=== PATIENT | female | born 1995 | race Two or more races ===

== ENCOUNTER 2017-07-29 21:31 | Emergency (ER) | payer MEDICAID, OTHER ==
[~2017-07-29] VITALS: Ht 157.5 cm; Wt 79.7 kg
[2017-07-29] MEDS ORDERED: LEVETIRACETAM 500 MG TABLET PO ONE (23:00)
[2017-07-29 23:24] VITALS: BP 144/89
== END 2017-07-29 23:27 | disposition home or self-care (01) ==
LOC: ED 23:14
DX: R56.9 Unspecified convulsions (principal)
CPT/HCPCS: 99282

== ENCOUNTER 2017-08-01 13:25 | Emergency (ER) | payer OTHER ==
[~2017-08-01] VITALS: Ht 157.5 cm; Wt 78.2 kg
[2017-08-01] MEDS ORDERED: ONDANSETRON ODT 8 MG PO ONE (15:30)
[2017-08-01 15:38] LABS: MICROSCOPIC INDICATED
[2017-08-01 15:39] LABS: HCG UR SG <= 1.005 (1.003-1.030)
[2017-08-01 16:04] LABS: CULTURE INDICATED? NO
[2017-08-01 16:28] VITALS: BP 110/68
== END 2017-08-01 16:33 | disposition home or self-care (01) ==
LOC: ED 15:09
DX: R42 Dizziness and giddiness (principal); R11.0 Nausea; R56.9 Unspecified convulsions; F17.200 Nicotine dependence, unspecified, uncomplicated
CPT/HCPCS: 81001; 81025; 99284

== ENCOUNTER 2017-08-03 14:37 | Emergency (ER) | payer OTHER ==
[~2017-08-03] VITALS: Ht 157.5 cm; Wt 80.0 kg
[2017-08-03 15:19] LABS: BASOPHILS # (AUTO) 0.03 x10^3/uL (0-0.1); BASOPHILS % (AUTO) 0 % (0-1); EOSINOPHILS # (AUTO) 0.03 x10^3/uL (0-0.4); EOSINOPHILS % (AUTO) 0 % (1-7); LYMPHOCYTES # (AUTO) 3.61 x10^3/uL (1-3.4); LYMPHOCYTES % (AUTO) 37 % (22-44); MD NO; MEAN CORPUSCULAR HEMOGLOBIN 21.4 pg (27.0-34.8); MEAN CORPUSCULAR HGB CONC 31.7 g/dL (32.4-35.8); MEAN CORPUSCULAR VOLUME 67.6 fL (80-100); MEAN PLATELET VOLUME 7.6 fL (7.4-10.4); MONOCYTES # (AUTO) 0.51 x10^3/uL (0.2-0.8); MONOCYTES % (AUTO) 5 % (2-9); NEUTROPHILS # (AUTO) 5.53 x10^3/uL (1.8-6.8); NEUTROPHILS % (AUTO) 57 % (42-75); PLATELET COUNT 398 x10^3/uL (130-400); RED CELL DISTRIBUTION WIDTH 16.6 % (9.6-15.2)
[2017-08-03 15:29] LABS: ALANINE AMINOTRANSFERASE 22 U/L (12-78); ALBUMIN 4.6 g/dL (3.4-5.0); ANION GAP 8 mmol/L (5-15); CALCIUM 9.2 mg/dL (8.5-10.1); CHLORIDE 106 mmol/L (98-107)
[2017-08-03 15:31] LABS: ALKALINE PHOSPHATASE 51 U/L (45-117); BILIRUBIN,TOTAL 0.9 mg/dL (0.2-1.0); TOTAL PROTEIN 8.1 g/dL (6.4-8.2)
[2017-08-03 16:12] LABS: CULTURE INDICATED? YES; HCG UR SG 1.027 (1.003-1.030); MICROSCOPIC AUTO
[2017-08-03 17:23] LABS: AMPHETAMINE SCREEN, URINE Negative (Negative); BARBITURATE SCREEN, URINE Negative (Negative); BENZODIAZEPINE SCREEN, URINE Negative (Negative); CANNABINOID SCREEN, URINE Negative (Negative); COCAINE SCREEN, URINE Negative (Negative); METHADONE SCREEN, URINE Negative (Negative); OPIATE SCREEN, URINE Negative (Negative)
[2017-08-03 17:38] VITALS: BP 116/78
[2017-08-03] MEDS ORDERED: LORazepam 1MG TABLET ONE (21:47)
[2017-08-03] MEDS ORDERED: ONDA4TAB10 PO (22:28)
[2017-08-03] MEDS ORDERED: LAMO100T PO (22:28)
[2017-08-03] MEDS ORDERED: METR500T8 PO (22:28)
== END 2017-08-03 17:47 | disposition home or self-care (01) ==
LOC: ED 16:06
DX: R41.82 Altered mental status, unspecified (principal); G40.909 Epilepsy, unspecified, not intractable, without status epilepticus; R82.99 Other abnormal findings in urine
CPT/HCPCS: 36415; 80053; 80175; 80307; 81001; 81025; 85025; 87077; 87086; 87186; 99284

== ENCOUNTER 2017-08-03 21:15 | Emergency (ER) | payer OTHER ==
[~2017-08-03] VITALS: Ht 157.5 cm; Wt 76.4 kg
[2017-08-03] MEDS ORDERED: LORazepam 1MG TABLET PO ONE (22:00)
[2017-08-03] MEDS ORDERED: METR500T8 PO (22:28)
[2017-08-03] MEDS ORDERED: LAMO100T PO (22:28)
[2017-08-03] MEDS ORDERED: ONDA4TAB10 PO (22:28)
[2017-08-03 22:55] VITALS: BP 98/62
== END 2017-08-03 23:26 | disposition home or self-care (01) ==
LOC: ED 21:55
DX: F41.1 Generalized anxiety disorder (principal); Z72.9 Problem related to lifestyle, unspecified
CPT/HCPCS: 93005; 99283

== ENCOUNTER 2017-08-17 17:54 | Observation (INO) | payer OTHER ==
[~2017-08-17] VITALS: Ht 157.5 cm; Wt 74.0 kg
[~2017-08-17 17:54] MED LIST: LAMO100T PO; METR500T8 PO; ONDA4TAB10 PO
[2017-08-17] MEDS ORDERED: SODIUM CHLORIDE 0.9% 1,000 ML IV ONE (18:12)
[2017-08-17] MEDS ORDERED: MAALOX/HYOSCYAMINE/LIDOCAINE 45 ML BTL PO ONE (18:30)
[2017-08-17] MEDS ORDERED: FAMOTIDINE 20 MG/2 ML IVP ONE (18:30)
[2017-08-17] MEDS ORDERED: SODIUM CHLORIDE 0.9% 1,000ML IVBOLUS ONE (18:30)
[2017-08-17] MEDS ORDERED: SODIUM CHLORIDE FLUSH 10ML SYR IVF ONE (18:30)
[2017-08-17 18:36] LABS: BASOPHILS # (AUTO) 0.03 x10^3/uL (0-0.1); BASOPHILS % (AUTO) 0 % (0-1); EOSINOPHILS # (AUTO) 0.04 x10^3/uL (0-0.4); EOSINOPHILS % (AUTO) 1 % (1-7); LYMPHOCYTES # (AUTO) 1.69 x10^3/uL (1-3.4); LYMPHOCYTES % (AUTO) 20 % (22-44); MD NO; MEAN CORPUSCULAR HEMOGLOBIN 21.3 pg (27.0-34.8); MEAN CORPUSCULAR HGB CONC 31.3 g/dL (32.4-35.8); MEAN CORPUSCULAR VOLUME 67.8 fL (80-100); MEAN PLATELET VOLUME 7.8 fL (7.4-10.4); MONOCYTES # (AUTO) 0.69 x10^3/uL (0.2-0.8); MONOCYTES % (AUTO) 8 % (2-9); NEUTROPHILS # (AUTO) 6.05 x10^3/uL (1.8-6.8); NEUTROPHILS % (AUTO) 71 % (42-75); PLATELET COUNT 347 x10^3/uL (130-400); RED BLOOD COUNT 5.58 x10^6/uL (3.82-5.3); RED CELL DISTRIBUTION WIDTH 16.7 % (9.6-15.2)
[2017-08-17 18:46] LABS: ALBUMIN 4.3 g/dL (3.4-5.0); ANION GAP 12 mmol/L (5-15); CALCIUM 8.6 mg/dL (8.5-10.1); CHLORIDE 107 mmol/L (98-107)
[2017-08-17 18:53] LABS: ALANINE AMINOTRANSFERASE 37 U/L (12-78); ALKALINE PHOSPHATASE 53 U/L (45-117); BILIRUBIN,TOTAL 1.1 mg/dL (0.2-1.0); CREATININE 0.86 mg/dL (0.55-1.02); TOTAL PROTEIN 8.3 g/dL (6.4-8.2)
[2017-08-17 18:54] LABS: ACETAMINOPHEN < 2 mcg/mL (10-30); SALICYLATE LEVEL < 1.7 mg/dL (2.8-20.0)
[2017-08-17] MEDS ORDERED: MAALOX/HYOSCYAMINE/LIDOCAINE 45 ML BTL ONE (18:56)
[2017-08-17] MEDS ORDERED: FAMOTIDINE 20 MG/2 ML ONE (18:57)
[2017-08-17 19:04] LABS: CULTURE INDICATED? YES; MICROSCOPIC INDICATED
[2017-08-17 19:12] LABS: AMPHETAMINE SCREEN, URINE Negative (Negative); BARBITURATE SCREEN, URINE Negative (Negative); BENZODIAZEPINE SCREEN, URINE Negative (Negative); CANNABINOID SCREEN, URINE Negative (Negative); COCAINE SCREEN, URINE Negative (Negative); METHADONE SCREEN, URINE Negative (Negative); OPIATE SCREEN, URINE Negative (Negative)
[2017-08-17] MEDS ORDERED: CEFDINIR 300 MG CAPSULE ONE (21:30)
[2017-08-17] MEDS: CEFDINIR 300 MG CAPSULE PO SCH (21:34)
[2017-08-17] MEDS ORDERED: BUSP5TAB2 PO (23:24)
[2017-08-18] MEDS ORDERED: QUETIAPINE 25MG TABLET PO PRN (01:30)
[2017-08-18] MEDS ORDERED: ACETAMINOPHEN 325 MG TABLET PO PRN (01:30)
[2017-08-18] MEDS ORDERED: ONDANSETRON ODT 4 MG PO PRN (01:30)
[2017-08-18] MEDS ORDERED: DOCUSATE 100 MG CAPSULE PO PRN (01:30)
[2017-08-18] MEDS ORDERED: DIPHENHYDRAMINE 50 MG CAPSULE PO PRN ×2 (01:30)
[2017-08-18] MEDS ORDERED: CEFD300C37 PO (08:05)
[2017-08-18] MEDS ORDERED: CEFDINIR 300 MG CAPSULE PO SCH (09:00)
[2017-08-18] MEDS ORDERED: CEFDINIR 300 MG CAPSULE ONE (09:24)
[2017-08-18] MEDS: CEFDINIR 300 MG CAPSULE PO SCH (09:37)
[2017-08-18 11:01] VITALS: BP 98/62
== END 2017-08-18 14:14 | disposition home or self-care (01) ==
LOC: ED 21:55 → EDIP 22:36 → UNDODISOB 08-20 05:53
PROVIDERS: ADMIT Internal Medicine; ATTEND Internal Medicine
DX: T14.91XA Suicide attempt, initial encounter (principal); T39.1X2A Poisoning by 4-Aminophenol derivatives, intentional self-harm, initial encounter; F31.9 Bipolar disorder, unspecified; F41.1 Generalized anxiety disorder; N39.0 Urinary tract infection, site not specified; Y92.89 Other specified places as the place of occurrence of the external cause; Y93.89 Activity, other specified; Y99.8 Other external cause status; Z87.891 Personal history of nicotine dependence; Z82.3 Family history of stroke; Z82.49 Family history of ischemic heart disease and other diseases of the circulatory system; Z91.5 Personal history of self-harm
CPT/HCPCS: 36415; 80053; 80175; 80307; 80329; 81001; 84703; 85025; 87077; 87086; 87186; 93005; 96361; 96374; 99285; G0378; J7030; G0480; S0028

== ENCOUNTER 2017-08-30 09:08 | Emergency (ER) | payer OTHER ==
[~2017-08-30] VITALS: Ht 154.9 cm; Wt 76.6 kg
[~2017-08-30 09:08] MED LIST changes: +BUSP5TAB2 PO; +CEFD300C37 PO
[2017-08-30 09:25] VITALS: BP 117/60
== END 2017-08-30 12:28 | disposition left against medical advice (07) ==
LOC: ED 11:45
DX: F41.9 Anxiety disorder, unspecified (principal); Z53.21 Procedure and treatment not carried out due to patient leaving prior to being seen by health care provider

== ENCOUNTER 2017-09-21 00:26 | Observation (INO) | payer OTHER ==
[~2017-09-21] VITALS: Ht 157.5 cm; Wt 55.0 kg
[2017-09-21] MEDS ORDERED: ETOD200C2 PO (01:06)
[2017-09-21] MEDS ORDERED: [UNRECOGNIZED DRUG - OTHER] PO (01:06)
[2017-09-21] MEDS ORDERED: BUSP10TA PO (01:06)
[2017-09-21] MEDS ORDERED: SERT25TA3 PO (01:06)
[2017-09-21 01:10] LABS: BASOPHILS # (AUTO) 0.04 x10^3/uL (0-0.1); BASOPHILS % (AUTO) 0 % (0-1); EOSINOPHILS # (AUTO) 0.05 x10^3/uL (0-0.4); EOSINOPHILS % (AUTO) 1 % (1-7); LYMPHOCYTES # (AUTO) 2.54 x10^3/uL (1-3.4); LYMPHOCYTES % (AUTO) 28 % (22-44); MD NO; MEAN CORPUSCULAR HEMOGLOBIN 21.5 pg (27.0-34.8); MEAN CORPUSCULAR VOLUME 67.1 fL (80-100); MEAN PLATELET VOLUME 7.4 fL (7.4-10.4); MONOCYTES % (AUTO) 8 % (2-9); NEUTROPHILS # (AUTO) 5.83 x10^3/uL (1.8-6.8); NEUTROPHILS % (AUTO) 64 % (42-75); PLATELET COUNT 389 x10^3/uL (130-400); RED BLOOD COUNT 5.07 x10^6/uL (3.82-5.3); RED CELL DISTRIBUTION WIDTH 16.6 % (9.6-15.2)
[2017-09-21 01:15] LABS: ALANINE AMINOTRANSFERASE 22 U/L (12-78); ALBUMIN 4.1 g/dL (3.4-5.0); ANION GAP 9 mmol/L (5-15); CALCIUM 8.6 mg/dL (8.5-10.1); CHLORIDE 111 mmol/L (98-107); CREATININE 0.75 mg/dL (0.55-1.02)
[2017-09-21 01:17] LABS: ALKALINE PHOSPHATASE 50 U/L (45-117); BILIRUBIN,TOTAL 0.9 mg/dL (0.2-1.0); TOTAL PROTEIN 7.2 g/dL (6.4-8.2)
[2017-09-21 01:20] LABS: ACETAMINOPHEN < 2 mcg/mL (10-30); SALICYLATE LEVEL < 1.7 mg/dL (2.8-20.0)
[2017-09-21 01:23] LABS: AMPHETAMINE SCREEN, URINE Negative (Negative); BARBITURATE SCREEN, URINE Negative (Negative); BENZODIAZEPINE SCREEN, URINE Negative (Negative); CANNABINOID SCREEN, URINE Positive (Negative); COCAINE SCREEN, URINE Negative (Negative); METHADONE SCREEN, URINE Negative (Negative); OPIATE SCREEN, URINE Negative (Negative)
[2017-09-21 03:04] LABS: HCG UR SG 1.023 (1.003-1.030)
[2017-09-21] MEDS ORDERED: ACETAMINOPHEN 325 MG TABLET PO PRN (07:00)
[2017-09-21] MEDS ORDERED: LORazepam 1MG TABLET PO ONE (07:00)
[2017-09-21] MEDS ORDERED: SERTRALINE 50MG TABLET ONE (07:07)
[2017-09-21] MEDS ORDERED: LORazepam 1MG TABLET ONE (07:07)
[2017-09-21] MEDS: SERTRALINE 50MG TABLET PO SCH (07:23)
[2017-09-21 21:46] VITALS: BP 105/70
[2017-09-22 08:07] VITALS: BP 100/67
[2017-09-22] MEDS: SERTRALINE 50MG TABLET PO SCH (09:04)
[2017-09-22 19:38] VITALS: BP 114/75
[2017-09-23] MEDS: ZIPRASIDONE 20 MG INJ IM PRN ×2 (00:56→23:42)
[2017-09-23 07:55] VITALS: BP 103/67
[2017-09-23] MEDS: SERTRALINE 50MG TABLET PO SCH (10:03)
[2017-09-23 19:34] VITALS: BP 111/70
[2017-09-24 08:25] VITALS: BP_SYST 92; BP_SYST 93; BP_DIAS 62; BP_DIAS 65
[2017-09-24] MEDS: SERTRALINE 50MG TABLET PO SCH (08:36)
[2017-09-24 19:41] VITALS: BP 108/71
[2017-09-24] MEDS: ZIPRASIDONE 20 MG INJ IM PRN (21:35)
== END 2017-09-25 02:20 ==
LOC: ED 00:47 → EDIP 06:36 → SUATTDRO 06:38 → 2N 21:42
PROVIDERS: ADMIT Hospitalist; ATTEND Hospitalist
DX: F23 Brief psychotic disorder (principal); F31.9 Bipolar disorder, unspecified; E87.6 Hypokalemia; Z87.891 Personal history of nicotine dependence; Z91.5 Personal history of self-harm
CPT/HCPCS: 36415; 80053; 80307; 80329; 81025; 85025; 96372; 99285; G0378; J3486; G0480

== ENCOUNTER 2017-10-02 19:47 | Emergency (ER) | payer OTHER ==
[~2017-10-02] VITALS: Ht 157.5 cm; Wt 53.0 kg
[~2017-10-02 19:47] MED LIST changes: +BUSP10TA PO; +ETOD200C2 PO; +SERT25TA3 PO; +[UNRECOGNIZED DRUG - OTHER] PO
[2017-10-02] MEDS ORDERED: ZIPR20CA2 PO (20:00)
[2017-10-02 22:17] VITALS: BP 124/67
== END 2017-10-02 21:45 | disposition home or self-care (01) ==
LOC: ED 21:13
DX: M27.8 Other specified diseases of jaws (principal); T43.595A Adverse effect of other antipsychotics and neuroleptics, initial encounter; G40.909 Epilepsy, unspecified, not intractable, without status epilepticus; Y92.89 Other specified places as the place of occurrence of the external cause
CPT/HCPCS: 99283

== ENCOUNTER 2017-10-06 21:04 | Emergency (ER) | payer OTHER ==
[~2017-10-06] VITALS: Ht 157.5 cm; Wt 60.0 kg
[~2017-10-06 21:04] MED LIST changes: +ZIPR20CA2 PO
[2017-10-06 22:40] VITALS: BP 111/58
== END 2017-10-06 22:43 | disposition home or self-care (01) ==
LOC: ED 21:30
DX: G24.09 Other drug induced dystonia (principal); T43.595A Adverse effect of other antipsychotics and neuroleptics, initial encounter; G40.909 Epilepsy, unspecified, not intractable, without status epilepticus; Y92.89 Other specified places as the place of occurrence of the external cause
CPT/HCPCS: 99282

== ENCOUNTER 2017-10-08 19:11 | Emergency (ER) | payer OTHER ==
[~2017-10-08] VITALS: Ht 157.5 cm; Wt 55.0 kg
[2017-10-08] MEDS ORDERED: ZIPR20CA2 PO (19:19)
[2017-10-08 19:59] VITALS: BP 118/69
== END 2017-10-08 20:00 | disposition home or self-care (01) ==
LOC: ED 19:50
DX: G24.09 Other drug induced dystonia (principal); T43.595A Adverse effect of other antipsychotics and neuroleptics, initial encounter; Y92.89 Other specified places as the place of occurrence of the external cause; Z88.8 Allergy status to other drugs, medicaments and biological substances; F20.9 Schizophrenia, unspecified; F41.9 Anxiety disorder, unspecified
CPT/HCPCS: 82962; 99283

== ENCOUNTER 2017-10-20 18:16 | Observation (INO) | payer OTHER ==
[~2017-10-20] VITALS: Ht 157.5 cm; Wt 76.3 kg
[2017-10-20] MEDS ORDERED: BUSP15TA PO (19:04)
[2017-10-20 19:47] LABS: HCG UR SG 1.032 (1.003-1.030)
[2017-10-20 20:00] LABS: AMPHETAMINE SCREEN, URINE Negative (Negative); BARBITURATE SCREEN, URINE Negative (Negative); BENZODIAZEPINE SCREEN, URINE Negative (Negative); CANNABINOID SCREEN, URINE Positive (Negative); COCAINE SCREEN, URINE Negative (Negative); METHADONE SCREEN, URINE Negative (Negative); OPIATE SCREEN, URINE Negative (Negative)
[2017-10-20 23:14] LABS: BASOPHILS # (AUTO) 0.05 x10^3/uL (0-0.1); BASOPHILS % (AUTO) 1 % (0-1); EOSINOPHILS # (AUTO) 0.35 x10^3/uL (0-0.4); EOSINOPHILS % (AUTO) 4 % (1-7); LYMPHOCYTES % (AUTO) 38 % (22-44); MD NO; MEAN CORPUSCULAR HEMOGLOBIN 21.7 pg (27.0-34.8); MEAN CORPUSCULAR HGB CONC 31.8 g/dL (32.4-35.8); MEAN CORPUSCULAR VOLUME 68.4 fL (80-100); MEAN PLATELET VOLUME 7.5 fL (7.4-10.4); MONOCYTES # (AUTO) 0.65 x10^3/uL (0.2-0.8); MONOCYTES % (AUTO) 8 % (2-9); NEUTROPHILS # (AUTO) 4.25 x10^3/uL (1.8-6.8); NEUTROPHILS % (AUTO) 50 % (42-75); PLATELET COUNT 379 x10^3/uL (130-400); RED BLOOD COUNT 5.07 x10^6/uL (3.82-5.3); RED CELL DISTRIBUTION WIDTH 17.1 % (9.6-15.2)
[2017-10-20 23:24] LABS: ALBUMIN 3.6 g/dL (3.4-5.0); ANION GAP 7 mmol/L (5-15); CHLORIDE 105 mmol/L (98-107); CREATININE 0.69 mg/dL (0.55-1.02)
[2017-10-20 23:31] LABS: ACETAMINOPHEN < 2 mcg/mL (10-30); SALICYLATE LEVEL < 1.7 mg/dL (2.8-20.0)
[2017-10-21] MEDS ORDERED: NICOTINE 14MG/24 HR PATCH.TD24 TD SCH ×2 (00:30→09:00)
[2017-10-21] MEDS ORDERED: QUETIAPINE 25MG TABLET PO SCH (00:30)
[2017-10-21] MEDS ORDERED: LORazepam 0.5MG TABLET PO SCH (00:30)
[2017-10-21 01:32] VITALS: BP 109/74
[2017-10-21 08:00] VITALS: BP 138/81
== END 2017-10-21 13:45 ==
LOC: ED 21:51 → EDIP 10-21 00:25 → 3E 10-21 01:02
PROVIDERS: ADMIT Hospitalist; ATTEND Hospitalist
DX: R45.851 Suicidal ideations (principal); F41.9 Anxiety disorder, unspecified; F33.3 Major depressive disorder, recurrent, severe with psychotic symptoms; F17.200 Nicotine dependence, unspecified, uncomplicated; G24.9 Dystonia, unspecified; Z82.3 Family history of stroke
CPT/HCPCS: 36415; 80048; 80307; 80329; 81025; 82040; 84703; 85025; 99285; G0378; G0480